=== PATIENT | female | born 1950 | race Caucasian/White ===

== ENCOUNTER → 2017-07-16 | Outpatient (CLI) | payer MEDICARE, BC ==
--- NOTE | 2017-07-16 12:24 | US ---
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 Pt states abnormal labs and neck sw elling GLAND SIZE: Right Lobe: 2.8 x 1.3 x 1.5 cm Overall Parenchyma: Slightly heterogeneous Left Lobe: 4.1 x 1.1 x 1.1 cm Overall Parenchyma: Slightly heterogeneous Isthmus Thickness: 0.2 cm NODULES RIGHT: # of nodules measured on right: 0 LEFT: # of nodules measured on left: Small 3mm colloid cyst upper pole ISTHMUS: # of nodules measured in the isthmus: 0 Bilateral neck scanned, no evidence of lymphadenopathy. Bilateral thyroid small and slightly heteroge neous with only a small colloid cyst seen on left/ Bilateral parathyroid area scanned and no abnormal ity could be appreciated Thyroid gland is overall small in size with smaller right-sided thyroid lobe noted. Thyroid is hetero geneous with tiny 3 mm colloid nodule anteriorly upper to mid pole level left thyroid identified by t echnologist. IMPRESSION: Thyroid gland is overall small in size and heterogeneous in appearance without worrisome greater than 1 cm solid or cystic nodules seen.
== END | disposition home or self-care (01) ==
LOC: RADUSWWP 11:40
PROVIDERS: ATTEND Family Medicine
DX: E07.9 Disorder of thyroid, unspecified (principal); E03.9 Hypothyroidism, unspecified
CPT/HCPCS: 76536

== ENCOUNTER → 2021-07-31 | Outpatient (CLI) | payer MEDICARE, BC ==
--- NOTE | 2021-07-31 14:11 | XR ---
EXAMINATION TYPE: XR cervical spine comp DATE OF EXAM: 07/31/2021 COMPARISON: NONE HISTORY: Pain TECHNIQUE: Four views are submitted. FINDINGS: The odontoid is intact. There are no compression deformities. The prevertebral soft tissue structur es are within normal limits. Multilevel facet arthropathy and degenerative disc disease with anterio r hypertrophic spurring. Multilevel foraminal encroachment. Multilevel uncovertebral joint hypertroph y. IMPRESSION: 1. Multilevel hypertrophic and degenerative disc disease with multilevel neural foraminal encroachmen t. Recommend follow-up MRI..
== END | disposition home or self-care (01) ==
LOC: RADXRYALE 13:42
PROVIDERS: ATTEND Physician Assistant Medical
DX: M47.812 Spondylosis without myelopathy or radiculopathy, cervical region (principal); M50.30 Other cervical disc degeneration, unspecified cervical region
CPT/HCPCS: 72050

== ENCOUNTER → 2022-11-27 | Outpatient (CLI) | payer MEDICARE, BC ==
--- NOTE | 2022-11-27 11:26 | XR ---
EXAM TYPE: LUMBAR SPINE X RAY SERIES COMPARISON: NONE HISTORY: Pain TECHNIQUE: 4 views are submitted. FINDINGS: Alignment is anatomic. The pedicles are intact. The transverse processes are intact. There is jeremy re degenerative disc disease at all levels with multilevel severe facet arthropathy with grade 1 ante rolisthesis L3 on L4. IMPRESSION: 1. Severe multilevel degenerative disc disease with grade 1 anterolisthesis L3 on L4 and multilevel f acet arthropathy. Suspect foraminal encroachment. Recommend MRI.
== END | disposition home or self-care (01) ==
LOC: RADXRYALE 09:52
PROVIDERS: ATTEND Physician Assistant Medical
DX: M51.36 Other intervertebral disc degeneration, lumbar region (principal); M43.16 Spondylolisthesis, lumbar region; M47.816 Spondylosis without myelopathy or radiculopathy, lumbar region
CPT/HCPCS: 72110

== ENCOUNTER → 2023-07-26 | Outpatient (CLI) | payer MEDICARE, BC ==
--- NOTE | 2023-07-26 12:37 | US ---
EXAMINATION TYPE: US pelvis complete transvag DATE OF EXAM: 07/26/2023 COMPARISON: NONE CLINICAL INDICATION: Female, 73 years old with history of N95.0 POSTMENOPAUSAL BLEEDING; PMB/spotting x 5 months that comes and goes TECHNIQUE: Transvaginal (TV) and Transabdominal (TA) . Transabdominal sonographic images of the pel vis were acquired. Transvaginal sonographic images were medically necessary to better assess the fol lowing anatomy: Endometrium, Uterus, Ovaries Date of LMP: [employer], EXAM MEASUREMENTS: Uterus: 9.4 x 5.5 x 4.3 cm Endometrial Stripe: 0.5 cm 1. Uterus: Anteverted Heterogenous. Mid focal calcified lesion = 2.5 x 2.5 x 3.5 cm. GISELA left fo milagro lesion, isoechoic = 1.1 x 1.4 x 1.1 cm 2. Endometrium: Possible lesion seen within vs adjacent to endometrial canal - 0.9 cm 3. Right Ovary: Obscured by overlying bowel gas 4. Left Ovary: Obscured by overlying bowel gas 5. Bilateral Adnexa: no free fluid 6. Posterior cul-de-sac: no free fluid IMPRESSION: 1. Leiomyomatous change of the uterus. 2. Endometrial lesion difficult to exclude. Consider direct visualization.
== END | disposition home or self-care (01) ==
LOC: RADUSWWP 10:44
PROVIDERS: ATTEND Family Medicine
DX: D25.9 Leiomyoma of uterus, unspecified (principal); N95.0 Postmenopausal bleeding
CPT/HCPCS: 76830; 76856

== ENCOUNTER 2024-04-01 06:35 | Day surgery (SDC) | payer MEDICARE, BC ==
[2024-03-31 11:16] VITALS: BMI 39.9
[~2024-04-01 06:35] MED LIST: ALPRAZolam 0.25 MG TAB PO PRN; ALPRAZolam 0.5 MG TAB PO PRN; ASPIRIN 325 MG TAB PO STA; ATORVASTATIN 80 MG TAB PO STA; NITROGLYCERIN SL TABS 0.4 MG TAB SUBLINGUAL PRN
[2024-04-01] MEDS: SODIUM CHLORIDE 0.9% 1,000 ML in EMPTY BAG 1 BAG IV SCH (07:15)
[2024-04-01 07:32] LABS: Basophils % (A) 1 %; Eosinophils # (A) 0.3 k/uL (0-0.7); Eosinophils % (A) 4 %; HCT 47.6 % (34.0-46.0); HGB 15.3 gm/dL (11.4-16.0); Lymphocytes % (A) 17 %; MCH 29.7 pg (25.0-35.0); MCHC 32.1 g/dL (31.0-37.0); MCV 92.5 fL (80.0-100.0); Mean Platelet Volume 9.2; Monocytes # (A) 0.4 k/uL (0-1.0); Monocytes % (A) 6 %; Neutrophils # (A) 4.1 k/uL (1.3-7.7); Neutrophils % (A) 69 %; Platelet Count 173 k/uL (150-450); RBC 5.15 m/uL (3.80-5.40); RDW 13.6 % (11.5-15.5); WBC 5.9 k/uL (3.8-10.6)
[2024-04-01 07:37] VITALS: RESP 16; TEMP 97.2
[2024-04-01 07:42] LABS: African American GFR (CKD) 78 (>60 ml/min/1.73 sqM); Anion Gap 4 mmol/L; Blood Urea Nitrogen 19 mg/dL (7-17); Calcium 9.2 mg/dL (8.4-10.2); Carbon Dioxide 30 mmol/L (22-30); Chloride 104 mmol/L (98-107); Glucose 79 mg/dL (74-99); Non-African American GFR(CKD) 68 (>60 ml/min/1.73 sqM); Potassium 4.4 mmol/L (3.5-5.1); Sodium 138 mmol/L (137-145)
[2024-04-01] MEDS: IV FLUID CONTINUATION 1,000 ML IV ONE (09:20)
[2024-04-01] MEDS: MIDAZOLAM 2 MG/2 ML VIAL IVP ONE (09:23)
[2024-04-01] MEDS: LIDOCAINE 1% INJ 10MG/ML (20 ML MDV) SQ ONE (09:24)
[2024-04-01] MEDS: VERAPAMIL SYRINGE (5 MG/10 ML) INTRAARTER ONE (09:29)
[2024-04-01] MEDS: HEPARIN SODIUM 1,000 UN/ML (10ML VL) IVP ONE (09:31)
[2024-04-01] MEDS: HEPARIN SODIUM,PORCINE 10,000 UNIT in SODIUM CHLORIDE 0.9% 1,000 ML IRRIGATION PRN (09:37)
[2024-04-01] MEDS: IOPAMIDOL-370 100ML BTL INJ ONE (09:37)
[2024-04-01] MEDS: HEPARIN SODIUM,PORCINE (1 ML) 2,500 UNIT in SODIUM CHLORIDE 0.9% 250 ML IRRIGATION PRN (09:38)
--- NOTE | 2024-04-01 10:07 | CC ---
CARDIAC CATHETERIZATION REPORT INDICATION: Abnormal stress test. INDICATIONS: This is a 74-year-old lady, who was to undergo hysterectomy and underwent a stress test as part of preop cardiac evaluation. This was abnormal and showed ischemia in the LAD distribution, due to which she was advised to undergo cardiac catheterization. The patient was explained of risks, benefits, and alternatives, understood and accepted. PROCEDURE NOTE: After obtaining informed consent, left heart catheterization and coronary angiogram were performed via the right radial artery using standard Bret catheters. The patient tolerated the procedure well without any obvious immediate complications. The right radial artery access was obtained using Seldinger technique. A 6-Macedonian sheath was placed. Catheters and wires were floated into the ascending aorta under fluoroscopic guidance. The patient received moderate conscious sedation. Total sedation time was 15 minutes. The patient received verapamil and heparin per protocol. A TR band will be used for hemostasis. FINDINGS: Hemodynamics: 1. Left ventricular end-diastolic pressure is 14 mm. There is no significant gradient across the aortic valve. 2. Left ventriculogram: Left ventriculogram is not performed. Angiographic data: 1. Right coronary artery: The right coronary artery is a large dominant vessel and is free of significant stenosis. 2. Left main coronary artery is a normal-sized vessel and is free of disease, divides into left anterior descending coronary artery and circumflex coronary artery. LAD and its branches, circumflex coronary artery and its branches are free of significant stenosis. CONCLUSIONS: 1. Normal coronary arteries. 2. False-positive stress test. PLAN: The patient will proceed with hysterectomy. MMODL / IJN: [id number] /
--- NOTE | 2024-04-01 10:11 | LTR ---
Dear Dr. Vega: I performed cardiac catheterization on Radha Roe. A detailed catheterization note is enclosed for your records. In brief, the cardiac catheterization revealed normal coronary arteries and her stress test is a false-positive stress test. She can safely proceed with her hysterectomy at this time. Thank you for allowing me to participate in the care of this pleasant lady. MMROSA / KACIN: [id number] /
[2024-04-01] MEDS ORDERED: RX INFO: IV CONTRAST WAS GIVEN 1 EACH MISC MISCELLANE PRN (10:32)
[2024-04-01] MEDS ORDERED: SODIUM CHLORIDE 0.9% 1,000 ML IV SCH (10:45)
[2024-04-01 13:46] VITALS: BP 142/62; PULSE 56
== END 2024-04-01 13:36 | disposition home or self-care (01) ==
LOC: CATHCVL 06:35
PROVIDERS: ATTEND Internal Medicine Cardiovascular Disease
CPT/HCPCS: 80048; 85025; 93458

== ENCOUNTER → 2024-07-21 | Outpatient (CLI) | payer MEDICARE, BC ==
--- NOTE | 2024-07-21 10:53 | XR ---
EXAMINATION TYPE: XR Hip Complete LT DATE OF EXAM: 07/21/2024 10:36 AM COMPARISON: None. CLINICAL INDICATION: Female, 74 years old with history of [id number] LT HIP PAIN, pain TECHNIQUE: 2 view(s) obtained. FINDINGS: Femoral head articulates with the acetabulum. There is loss of the joint space. No acute fractures or dislocations evident. Sacroiliac joint degenerative changes are present. Follow up exams can be perf ormed as clinically indicated. IMPRESSION: 1. Moderate degenerative changes left hip. 2. Degenerative changes left sacroiliac joint. 3. No acute osseous abnormality radiographically apparent. [facility], , 07/21/2024 10:51 AM
== END | disposition home or self-care (01) ==
LOC: RADXRYALE 10:13
PROVIDERS: ATTEND Physician Assistant Medical
DX: M16.12 Unilateral primary osteoarthritis, left hip (principal); M53.3 Sacrococcygeal disorders, not elsewhere classified
CPT/HCPCS: 73502

== ENCOUNTER → 2024-09-02 | Outpatient (CLI) | payer MEDICARE, BC ==
--- NOTE | 2024-09-02 09:31 | XR ---
EXAMINATION TYPE: XR chest 2V DATE OF EXAM: 09/02/2024 9:23 AM COMPARISON: Chest radiographs from 08/03/2014 CLINICAL INDICATION: Female, 74 years old with history of R059,[id number] COUGH,SOB; [facility] TECHNIQUE: XR chest 2V Frontal and lateral views of the chest. FINDINGS: Lungs/Pleura: There is no evidence of pleural effusion, focal consolidation, or pneumothorax. Pulmonary vascularity: Unremarkable. Heart/mediastinum: Cardiomediastinal silhouette is unremarkable. Musculoskeletal: No acute osseous pathology. IMPRESSION: No acute cardiopulmonary disease/process. [facility], , 09/02/2024 9:28 AM
== END | disposition home or self-care (01) ==
LOC: RADXRYALE 09:11
PROVIDERS: ATTEND Physician Assistant Medical
DX: R05.9 Cough, unspecified (principal); R06.02 Shortness of breath
CPT/HCPCS: 71046